=== PATIENT | female | born 1965 | race Caucasian/White ===

== ENCOUNTER → 2016-10-24 | Outpatient (CLI) | payer BC ==
[2016-10-24 09:38] LABS: HEMOGLOBIN 14.3 gm/dl (12.3-15.3); RED BLOOD COUNT 4.66 M/UL (4.00-5.10); WHITE BLOOD COUNT 6.2 K/UL (4.5-11.0)
[2016-10-24 09:48] LABS: BUN/CREATININE RATIO 17 (0-10)
== END ==
LOC: LAB 08:24
PROVIDERS: Internal Medicine
DX: R73.01 Impaired fasting glucose (principal); E78.5 Hyperlipidemia, unspecified; E53.8 Deficiency of other specified B group vitamins; E55.9 Vitamin D deficiency, unspecified; R53.82 Chronic fatigue, unspecified
CPT/HCPCS: 36415; 80053; 80061; 82607; 82746; 85027

== ENCOUNTER → 2016-11-02 | Outpatient (CLI) | payer BC | LOC: LAB 08:25 | DX: R53.82 Chronic fatigue, unspecified (principal); R59.1 Generalized enlarged lymph nodes | CPT/HCPCS: 36415; 84436; 84443; 84480; 86695; 86696 ==

== ENCOUNTER → 2021-08-28 | Outpatient (CLI) | payer BC | LOC: EXRD 09:18 | DX: Z78.0 Asymptomatic menopausal state (principal) | CPT/HCPCS: 77080 ==

== ENCOUNTER → 2022-01-19 | Outpatient (CLI) | payer BC | LOC: LAB 14:18 | DX: Z20.822 Contact with and (suspected) exposure to COVID-19 (principal) | CPT/HCPCS: U0003 ==